=== PATIENT | male | born 1985 | race African-American/Black ===

== ENCOUNTER 2021-11-25 20:35 | Emergency (ER) | payer SELFPAY ==
[~2021-11-25] VITALS: Ht 172.7 cm; Wt 92.7 kg
[2021-11-25 21:10] VITALS: BP 152/89
--- NOTE | 2021-11-25 21:14 | NUR ---
PT TAKEN TO ER BED 07
--- NOTE | 2021-11-25 22:00 | NUR ---
36 Y/O M BIB SELF FOR SEVER TOOTACHE X 1.5 DAYS. PT STATES PAIN RADIATES FROM R BOTTOM MIDDLE. PT HAS TAKEN TYLENOL AND ADVIL. PT STATES NO ALLERGIES BUT STOMAC HGETS UPSET WHEN TAKEN ADVIL. LAST DENTIST APPT WAS LAST YEAR, APPROX 1 YEAR AGO. PT HAS NO PMH. PT DENIES N/F/V/D/COUGH/ SOB/ CHEST PAIN. MEDS: NONE
[2021-11-25] MEDS ORDERED: IBUP-2213 PO (22:20)
[2021-11-25] MEDS ORDERED: ACET-10509 PO (22:20)
[2021-11-25] MEDS ORDERED: AMOX-999 PO (22:22)
--- NOTE | 2021-11-25 22:30 | NUR ---
Patient appears to be resting comfortably in bed. Vital Signs within normal limits. Respirations even and unlabored. pt holding chin
[2021-11-25 22:55] VITALS: BP 148/86
--- NOTE | 2021-11-25 22:55 | NUR ---
Patient discharged with v/s stable. Written and verbal after care instructions given and explained. Patient alert, oriented and verbalized understanding of instructions. Ambulatory with steady gait. All questions addressed prior to discharge. ID band removed. Patient advised to follow up with PMD. Rx of acetametaphion, ibuprofen, amoxcillin/potassium given. Opportunity to ask questions provided and answered.
--- NOTE | 2021-11-25 23:10 | NUR ---
The patient's care was reviewed and supervised by Amy Ko RN.
== END 2021-11-25 22:55 | disposition home or self-care (01) ==
LOC: MED 20:35
DX: K08.89 Other specified disorders of teeth and supporting structures (principal); K04.01 Reversible pulpitis; Z79.2 Long term (current) use of antibiotics; Z79.1 Long term (current) use of non-steroidal anti-inflammatories (NSAID)
CPT/HCPCS: 99283